=== PATIENT | male | born 1955 | race Caucasian/White ===

== ENCOUNTER 2017-08-20 10:52 | Day surgery (SDC) | payer BC ==
[2017-08-20] VITALS (8 sets, daily range): BP systolic 122–153; BP diastolic 69–99; PULSE 72–88; RESP 17–18; TEMP 97.6–98.7; O2SAT 95–96
[~2017-08-20] VITALS: Ht 188 cm; Wt 114.7 kg
[~2017-08-20 10:52] MED LIST: AMLO5TAB22 PO; ASCO500C PO; ASPI81TA82 PO; ATEN-100 PO; ATOR20TA42 PO; GLUC250C5 PO; HYDR-2768 PO; MULT1TAB46; MULTCAP14 PO; OMEG1CAP53 PO
[2017-08-20 12:44] LABS: AUTOMATED NEUTROPHIL # 5.3 TH/MM3 (1.8-7.7); BASOPHIL % 0.3 % (0.0-2.0); EOSINOPHIL # 0.1 TH/MM3 (0-0.4); EOSINOPHIL % 0.8 % (0.0-4.0); HEMATOCRIT 43.8 % (39.0-51.0); HEMO FLAGS DIFF FINAL; LYMPH % 21.2 % (9.0-44.0); LYMPHOCYTE # 1.6 TH/MM3 (1.0-4.8); MEAN CELL VOLUME 92.1 FL (80.0-100.0); MEAN CORPUSCULAR HEMOGLOBIN 31.1 PG (27.0-34.0); MEAN CORPUSCULAR HGB CONC 33.8 % (32.0-36.0); MONO % 9.4 % (0.0-8.0); NEUT % 68.3 % (16.0-70.0); PLATELET COUNT 194 TH/MM3 (150-450); RED BLOOD COUNT 4.76 MIL/MM3 (4.50-5.90); WHITE BLOOD COUNT 7.7 TH/MM3 (4.0-11.0)
[2017-08-20 12:50] LABS: APTT (PATIENT) 25.9 SEC (24.3-30.1); PROTHROMBIN TIME - PATIENT 10.6 SEC (9.8-11.6)
[2017-08-20 13:08] LABS: BICARBONATE 29.8 MEQ/L (21.0-32.0)
[2017-08-20 13:13] LABS: POTASSIUM 4.2 MEQ/L (3.5-5.1)
[2017-08-20] MEDS ORDERED: SODIUM CHLORID 0.9% 500 ML IV PRN (13:45)
[2017-08-20] MEDS ORDERED: POVIDONE IODINE 5% (ANTISEPSIS KIT) 4 APPLICATIONS EACH NARE PRN (13:45)
[2017-08-20] MEDS ORDERED: METOPROLOL TARTRATE 25 MG TAB PO PRN (13:45)
[2017-08-20] MEDS ORDERED: LACTATED RINGER'S 1000 ML IV PRN (13:45)
[2017-08-20] MEDS ORDERED: LORazepam 1 MG TAB SL SCH (13:45)
[2017-08-20] MEDS ORDERED: INSULIN HUMAN REGULAR 1,000 UNITS/10 ML VIAL SQ PRN (13:45)
[2017-08-20] MEDS ORDERED: CHLORHEXIDINE GLUCONATE 2 % 1 PACK (2 CLOTHS) TOPICAL PRN (13:45)
[2017-08-20] MEDS ORDERED: MULT1TAB46 PO (13:48)
[2017-08-20] MEDS ORDERED: ATOR10TA15 PO (13:48)
[2017-08-20] MEDS ORDERED: ALEV220T14 PO (13:48)
[2017-08-20] MEDS ORDERED: FURO1TAB60 PO (13:48)
[2017-08-20] MEDS ORDERED: MOME0.1C23 TOPICAL (13:48)
[2017-08-20] MEDS ORDERED: PRAD150C PO (13:48)
[2017-08-20] MEDS ORDERED: ATEN25TA PO (13:48)
[2017-08-20] MEDS ORDERED: VIAG50TA PO (13:48)
[2017-08-20] MEDS ORDERED: AMLO5TAB2 PO (13:48)
[2017-08-20] MEDS ORDERED: ASCO500C PO (13:48)
[2017-08-20] MEDS ORDERED: IBUP200C PO (13:48)
[2017-08-20] MEDS: SODIUM CHLORID 0.9% 500 ML INJ 500 ML IV SCH (14:00)
[2017-08-20] MEDS ORDERED: HEPARIN-NS/PF INJ 1,500 ML ONE (14:49)
[2017-08-20] MEDS ORDERED: LEVOFLOXACIN 500 MG PREMIX INJ 100 ML IV ONE (14:49)
[2017-08-20] MEDS ORDERED: PROTAMINE SULFATE 50 MG/5 ML VIAL ONE (15:10)
[2017-08-20] MEDS ORDERED: ISOPROTERENOL HCL 1 MG/5 ML AMP ONE (15:10)
[2017-08-20] MEDS ORDERED: HEPARIN SODIUM - IV 10,000 UNITS/10 ML VIAL ONE (15:10)
[2017-08-20] MEDS ORDERED: HEPARIN-NS/PF INJ 500 ML ONE (15:10)
[2017-08-20] MEDS ORDERED: SODIUM CHLOR 0.9% 250 ML INJ 250 ML ONE (15:10)
[2017-08-20] MEDS ORDERED: HEPARIN-D5W 25,000 U/250 ML 250 ML ONE (15:11)
--- NOTE | 2017-08-20 16:24 | CATHPROC ---
[place] HIS Report Study Information Study Number Admission Scheduled Start Study Start [id number] Aug 20 2017 10:52AM 08/20/2017 Aug 20 2017 2:25PM [place] Service Electrophysiology Study Admit Source Facility Department Other [facility] - Thermo Cementing Folder Operator Physician and Clinical Staff Initial Earlene Miles Almond Cutting Machine Tender Gabriel Lopez,RT(R) Almond Cutting Machine Tender Rosa Mcfarland,BILLIE Other Anesthesia, CASINO FLOORPERSON Recorder Nadine Mckenzie,BREANA Scrub Sylvia Jarquin,ORACLE E BUSINESS DEVELOPER TECH2 Procedures Performed Procedure Ablation Procedure Equipment Time Raw Sampler Description Size Mfg Part Number Used/Scraped NEEDLE, TRANSSEPTAL NRG 98 14:28 [facility] [id number] Used C1 BIOSENSE WEN CATHETER, CELSIUS DS, 8MM, F [id number] 15:44 FR 7 Used INC. TYPE QUAD *[id number] [employer]/ EP 14:28 KIT, TRANSDUCER / AFIB [id number] Used PACER [id number] CATHETER, TACTICATH ABLAT BUNDLE 14:28 [facility] Used 65 BUNDLE *[id number]- BUNDLE [id number] CATHETER, FR7 OPTIMA SPIRAL 14:28 [facility] FR7 *[id number]- Used BUNDLE BUNDLE [id number] 14:28 [facility] CATHETER, JSN, QUAD BUNDLE FR 5 *[id number]- Used BUNDLE [id number] 14:28 [facility] CATHETER, JSN, QUAD BUNDLE FR 5 *[id number]- Used BUNDLE [id number] SET, COOL POINT TUBING 14:28 [facility] *[id number]- Used BUNDLE BUNDLE SHEATH, FR8.5 STEERABLE SM 14:28 [facility] 71CM [id number] Used 71CM BUNDLE COVER, TRANSDUCER CABLE 14:28 [employer] 612-113 Used ACUNAV 14:28 CORDIS/PACER SHEATH, FR10 SRIDHAR 11CM FR 10 [id number] Used 14:28 CORDIS/PACER SHEATH, FR9 SRIDHAR 11CM FR 9 [id number] Used [id number] 14:28 MED[employer] IND[employer] PACK, CCL CUSTOM * Used *[id number] 14:28 MEDLINE PACER CASIANO, LIMB * 0380 *[id number] Used [id number] 14:28 [facility] MEDICAL SHEATH, FR4.5 PRELUDE 11CM FR 4.5 Used [id number] 14:28 NAMIC TUBING, HIGH PRESSURE 48" 48" Used *[id number] 14:28 NAMIC TUBING, HIGH PRESSURE 48" 48" Used *[id number] 14:28 [facility]IA[facility] MEDICAL BLANKET,WARM AIR CCL * Used *[id number] 14:28 [facility] MEDICAL ELECTRODE KIT, OSWALDO X SURFACE * Used *[id number] 14:28 [facility] MEDICAL SHEATH, EPS, FR6 FAST CATH FR 6 Used *[id number] 14:28 [facility] MEDICAL SHEATH, EPS, FR7 FAST CATH FR 7 [id number] Used [id number] 14:28 [facility] MEDICAL SHEATH, EPS, FR8 FAST CATH FR 8 Used *[id number] CATHETER, ACUNAV FR10 ICE [id number] 15:32 ELIN FR 10 Used (ELIN) *[id number] [facility], ELECTROSURGICAL 14:28 * [id number] *[id number] Used SURGICAL GROUNDING (BLUE) History: Allergies Allergy Reaction flecainide Bradycardia History: Risk Factors Hypertension Dyslipidemia Previous DE Yes Yes Yes Labs Hgb (g/dl) Hct (%) RBC (MIL/MM3) WBC (l/cumm) Platelets (thousands) 11.60-17.00 35.00-51.00 4.00-5.90 4.00-11.00 150.00-450.00 14.0 43 4.7 7.7 194 Glucose (mg/dl) BUN (mg/dl) Creatinine (mg/dl) BUN:Creatinine (1:x) 74.00-106.00 7.00-18.00 0.50-1.30 10.00-20.00 98 17 0.8 21.3 Na (meq/l) K (meq/l) 136.00-145.00 3.50-5.10 137 4.2 INR (PTT:PT) 0.90-1.10 1 Medication Medication Total Dose (Bolus/Oral) Medication Total Dosage/Unit 1% XYLOCAINE 40 mL HEPARIN 8000 units PROTAMINE 40 mg Medications (Bolus/Oral) Medication Time Given Dosage/Unit Administered By Reason 1% XYLOCAINE 08/20/2017 3:27:00 PM 20 mL Earlene Nix 20 mL 1% XYLOCAINE given in lab by Earlene Nix in Left Groin via Subcutaneous. 1% XYLOCAINE 08/20/2017 3:29:59 PM 20 mL Earlene Nix 20 mL 1% XYLOCAINE given in lab by Earlene Nix in Right Groin via Subcutaneous. HEPARIN 08/20/2017 3:49:48 PM 8000 units Anesthesia, CASINO FLOORPERSON 8000 units HEPARIN given in lab by Anesthesia, CASINO FLOORPERSON via Peripheral IV. PROTAMINE 08/20/2017 4:08:56 PM 40 mg Anesthesia, CASINO FLOORPERSON As per physicians izaiah bal order 40 mg PROTAMINE given in lab by Anesthesia, CASINO FLOORPERSON via Peripheral IV. Ordered by Earlene Nix. Reason: As per physicians verbal order. Medication (Drip) Medication Time Given Dosage/Unit Concentration/Unit Diluent (ml) Solution ISUPREL 08/20/2017 3:59:38 PM 5 mcg/min 1 mg 250 NaCl .9 5 mcg/min ISUPREL given in lab by Anesthesia, CASINO FLOORPERSON via Peripheral IV. Pump/Drip Flow = 75 ml/hr using NaCl .9 with a concentration of 1 mg in 250 ml. LEVAQUIN 08/20/2017 3:16:31 PM 100 mL/hr 500 100 NaCl .9 100 mL/hr LEVAQUIN given in lab by Anesthesia, CASINO FLOORPERSON via Peripheral IV. Pump/Drip Flow = 0 ml/hr using NaCl .9 with a concentration of 500 in 100 ml. Ordered by Earlene Nix. Reason: As per physicians verbal order. Initial Case Assessment Cardiovascular HR Rhythm NIBP Chest Pain 99 af 141/82 0 Edema Present Skin color Skin None Normal Warm Dry Circulatory - Right Pulses Dorsalis Pedis 1 Scale (0,1,2,3,4,d) Circulatory - Left Pulses Dorsalis Pedis 1 Scale (0,1,2,3,4,d) Circulatory - Lower Extremities Color Lower Right Color Lower Left Normal Normal Neurological State Oriented to time-place- Alert Moves all extremities person Respiration - General Respiration Rate SpO2 (%) (B/min) 18 100 Final Case Assessment Cardiovascular HR Rhythm NIBP Chest Pain 99 sr 102/67 0 Edema Present Skin color Skin None Normal Warm Dry Circulatory - Right Pulses Dorsalis Pedis 1 Scale (0,1,2,3,4,d) Circulatory - Left Pulses Dorsalis Pedis 1 Scale (0,1,2,3,4,d) Circulatory - Lower Extremities Color Lower Right Color Lower Left Normal Normal Neurological State Oriented to time-place- Lethargic Moves all extremities person Respiration - General Respiration Rate SpO2 (%) O2 (lpm) (B/min) 16 100 4 Chronological Log Time Study Chronological Log 14:44:07 Patient arrived via Bed. 14:44:08 Patient Name, D.O.B, / Armband Verified By R.N. 14:44:09 Consent signed by the physician and the patient and verified by the Thermo Cementing Folder Operator staff. 14:44:10 Pre-op and post- op instructions given; patient acknowledges understanding of instructions. 14:44:12 Verbal Stimulation=2 Physical Stimulation=2 Airway=2 Respiration=2 TOTAL=8. (0=absent, 1=li mited, 2=present) 14:44:21 Anesthesia at bedside. Assumes care of patient. 14:44:24 Patient has been NPO for More than 6Hrs. 14:44:25 Skin Breakdown- bilateraled groins excoriated. MD made aware 14:44:34 Patient Warmer Placed on the Table. 14:44:35 Disposable Defibrillator Pads Placed On Patient. 14:44:36 Shanna Prominences Protected 14:44:42 A # 22 IV was noted in the Hand (left). Grade = 0 0.9ns kvo 14:44:44 A # 20 IV was noted in the Antecubital (right). Grade = 0 0.9ns kvo 14:44:47 History and physical on the chart or being dictated. Assessment: Initial Case, HR=99 BPM, Rhythm=af, NNBH=146/82 mmhg, Chest Pain=0, Edema=None, Col or=Normal, Skin = Warm, Dry Right Pulses: Ash Ped=1 Left Pulses: Ash Ped=1 14:52:20 Lower Right Extremities: Color=Normal Lower Left Extremities: Color=Normal Neurological: State=Alert, Ox3, [place] Respiration: Resp=18 B/min, XnI7=260 % 15:00:00 Table restraints applied according to hospital policy 15:00:00 MD arrived. 15:06:00 Anesthesia present for intubation. 14Fr wilkinson inserted sans difficulty. Clear yellow urine obtained. 15:09:50 Bilateral groins prepped with 2% chlorhexidine, and draped after a 3 minute waiting time. 15:16:04 Reference ECG taken 100 mL/hr LEVAQUIN given in lab by Anesthesia, CASINO FLOORPERSON via Peripheral IV. Pump/Drip Flow = 0 ml/hr using NaCl .9 with 15:16:31 a concentration of 500 in 100 ml. Ordered by Earlene Nix. Reason: As per physicians verbal or estrada. Time Out. Correct patient, procedure, procedure equipment, site and side verified with physicia n present. Time 15:22:02 concurred by MD, individual staff and CASINO FLOORPERSON. Time Out #2 - Consents verified, patient in correct position, all results are labled and displa yed, safety precautions 15:22:35 taken, antibiotics administered. Time out concurred by MD, individual staff and CASINO FLOORPERSON in procedu re 15:22:48 Case Start 15:22:54 Ramírez in progress. 15:26:00 Ramírez complete 15:27:00 20 mL 1% XYLOCAINE given in lab by Earlene Nix in Left Groin via Subcutaneous. 15:28:02 Vascular access was obtained in the Fem Vein (left). 15:28:05 Vascular access was obtained in the Fem Vein (left). 15:28:08 Vascular access was obtained in the Fem Vein (left). 15:28:14 Vascular access was obtained in the Fem Art (left). A SHEATH, FR4.5 PRELUDE 11CM FR 4.5 was advanced into the Fem Art (left) using the Modified Lindsay letty technique. 15:28:25 0.9ns pressure bag connected. 15:28:54 A SHEATH, EPS, FR6 FAST CATH FR 6 was advanced into the Fem Vein (left) using the Modified Seldinger technique. 15:29:01 A SHEATH, EPS, FR7 FAST CATH FR 7 was advanced into the Fem Vein (left) using the Modified Seldinger technique. 15:29:06 A SHEATH, FR10 SRIDHAR 11CM FR 10 was advanced into the Fem Vein (left) using the Modified S eldinger technique. 15:29:59 20 mL 1% XYLOCAINE given in lab by Earlene Nix in Right Groin via Subcutaneous. 15:30:06 Vascular access was obtained in the Fem Vein (right). 15:30:11 A SHEATH, EPS, FR8 FAST CATH FR 8 was advanced into the Fem Vein (right) using the Modified Seldinger technique. A CATHETER, JSN, QUAD BUNDLE FR 5 was advanced vis Fem Vein (left) and placed in the CS. Placem ent was visually 15:38:56 confirmed under fluoroscopy. A CATHETER, JSN, QUAD BUNDLE FR 5 was advanced vis Fem Vein (left) and placed in the RA. Placem ent was visually 15:45:31 confirmed under fluoroscopy. A CATHETER, CELSIUS DS, 8MM, F TYPE QUAD FR 7 was advanced vis Fem Vein (right) and placed in t RA. 15:45:52 Placement was visually confirmed under fluoroscopy. 15:48:53 ablation catheter out A SHEATH, FR8.5 STEERABLE SM 71CM BUNDLE 71CM was exchanged in the Fem Vein (right). This was n ecessary in 15:49:31 order to accomodate a larger catheter. 15:49:48 8000 units HEPARIN given in lab by Anesthesia, CASINO FLOORPERSON via Peripheral IV. A CATHETER, CELSIUS DS, 8MM, F TYPE QUAD FR 7 was advanced vis Fem Vein (right) and placed in t RA. 15:51:13 Placement was visually confirmed under fluoroscopy. 15:52:00 ablation in progress 15:59:20 All Catheter(s) removed without difficulty 5 mcg/min ISUPREL given in lab by Anesthesia, CASINO FLOORPERSON via Peripheral IV. Pump/Drip Flow = 75 ml/h r using NaCl .9 with 15:59:38 a concentration of 1 mg in 250 ml. 16:05:35 Isuprel off. A SHEATH, FR9 SRIDHAR 11CM FR 9 was exchanged in the Fem Vein (right). This was necessary in or estrada to minimize 16:06:20 site leakage. 40 mg PROTAMINE given in lab by Anesthesia, CASINO FLOORPERSON via Peripheral IV. Ordered by Earlene Nix. Reason: As per 16:08:56 physicians verbal order. 16:14:49 Sterile dressing applied to sites 16:15:56 Activated Clotting Time Drawn Assessment: Final Case, HR=99 BPM, Rhythm=sr, VPBY=518/67 mmhg, Chest Pain=0, Edema=None, [place] r=Normal, Skin = Warm, Dry Right Pulses: Ash Ped=1 Left Pulses: Ash Ped=1 16:18:34 Lower Right Extremities: Color=Normal Lower Left Extremities: Color=Normal Neurological: State=Lethargic, Ox3, [place] Respiration: Resp=16 B/min, GoZ7=004 %, O2=4 lpm 16:20:02 Case End 16:20:38 ACT (Normal Range 90-180) = 146 16:21:49 PACU called. Spoke to Goldy 16:22:53 Bedside Report will be given. 16:23:13 No case complications noted. 16:23:14 Cine recording checked. 16:23:20 Ablation procedure performed: AFIB. 16:23:25 EP Procedure was performed. 16:23:33 Defibrillator and ground pads removed. Skin intact. 16:29:35 Patient moved to stretcher 17:05:47 Sheath(s) left in place, secured, 0.9ns kvo connected and will be removed in Holding Area End Study - Contrast Media Used In Study Contrast Total Opened (mL) Total Used (mL) Total Wasted (mL) Unspecified 0 0 0 End Study - Maximum Contrast Load Max Contrast Load (mL) 715.1 End Study - Radiation Exposure Fluoro Time (minutes) 11.6 End Study - Patient Disposition Complications Transferred To Interventional Outcome No Telemetry Bed successful
[2017-08-20] MEDS ORDERED: BACITRACIN OINT 0.9 GM PKT TOP ONE (16:30)
[2017-08-20] MEDS ORDERED: ATROPINE SULFATE 1 MG/ML VIAL IV PUSH PRN (16:30)
[2017-08-20] MEDS ORDERED: ONDANSETRON HCL 4 MG/2 ML VIAL IV PUSH PRN (16:30)
[2017-08-20] MEDS ORDERED: SODIUM CHLOR 0.9% 250 ML INJ 250 ML IV PRN (16:30)
[2017-08-20] MEDS ORDERED: LIDOCAINE HCL 1% 50 ML VIAL INFIL PRN (16:30)
[2017-08-20] MEDS ORDERED: oxyCODONE/ACETAMINOPHEN 5 MG/325 MG TAB PO PRN ×2 (16:30)
[2017-08-20] MEDS ORDERED: LORazepam 2 MG/ML VIAL IV PUSH PRN (16:30)
[2017-08-20] MEDS ORDERED: DO NOT ADM ANY ANTICOAGULANT DRUGS PRN (16:34)
[2017-08-20] MEDS ORDERED: [UNRECOGNIZED DRUG - OTHER] PO SCH (21:00)
[2017-08-20] MEDS ORDERED: ATORVASTATIN 10 MG TAB PO SCH (21:00)
[2017-08-20] MEDS ORDERED: NAPROXEN SODIUM 220 MG PO SCH (21:00)
[2017-08-20] MEDS: DABIGATRAN ETEXILATE 150 MG CAP PO SCH (21:03)
[2017-08-21] VITALS (9 sets, daily range): BP systolic 124–129; BP diastolic 70–78; PULSE 67–106; RESP 16–18; TEMP 97.6–97.9; O2SAT 94–99
[2017-08-21] MEDS: SODIUM CHLORID 0.9% 500 ML INJ 500 ML IV SCH (06:40)
[2017-08-21 07:10] LABS: INTERNATIONAL NORMALIZED RATIO 1.1 RATIO; PROTHROMBIN TIME - PATIENT 11.5 SEC (9.8-11.6)
--- NOTE | 2017-08-21 07:55 | PD.CARD.PN ---
Subjective Subjective Remarks Feels okay. Objective Medications Current Medications Medications (Trade) Dose Ordered Sig/Nicolas Route Start Time Stop Time Status Last Admin Lactated Ringer's 1,000 ml @ 30 mls/hr Q24H PRN IV 08/20/17 13:45 08/23/17 13:44 Sodium Chloride 500 ml @ 30 mls/hr [id number] PRN IV 08/20/17 13:45 08/23/17 13:44 (Lopressor) 25 mg BATTERY HAND PRN PO 08/20/17 13:45 08/23/17 13:44 (Betadine 5% Antisepsis Kit) 1 applic BATTERY HAND PRN EACH NARE 08/20/17 13:45 08/23/17 13:44 (Chlorhexidine 2% Cloth) 3 pack BATTERY HAND PRN TOPICAL 08/20/17 13:45 08/23/17 13:44 (NovoLIN R INJ) See Protocol Table ... BATTERY HAND PRN SQ 08/20/17 13:45 08/23/17 13:44 Sodium Chloride 500 ml @ 30 mls/hr [id number] IV 08/20/17 14:00 (Ativan) 1 mg BATTERY HAND SL 08/20/17 13:45 08/23/17 13:44 (Percocet 5-325 Mg) 1 tab Q4H PRN PO 08/20/17 16:30 08/20/17 20:18 (Percocet 5-325 Mg) 2 tab Q4H PRN PO 08/20/17 16:30 (Ativan Inj) 0.5 mg UNSCH PRN IV PUSH 08/20/17 16:30 08/21/17 16:29 (Atropine Inj) 0.5 mg UNSCH PRN IV PUSH 08/20/17 16:30 Sodium Chloride 250 ml @ 500 mls/hr ONCE PRN IV 08/20/17 16:30 08/21/17 16:29 (Zofran Inj) 4 mg Q4H PRN IV PUSH 08/20/17 16:30 (Xylocaine 1% Inj (50 ml)) 10 ml UNSCH PRN INFIL 08/20/17 16:30 08/21/17 16:29 (Norvasc) 5 mg DAILY PO 08/21/17 09:00 (Tenormin) 25 mg DAILY PO 08/21/17 09:00 (Lipitor) 10 mg HS PO 08/20/17 21:00 08/20/17 20:18 (Pradaxa) 150 mg BID PO 08/20/17 21:00 08/20/17 21:03 (Lasix) 40 mg DAILY PO 08/21/17 09:00 (Vitamin C) 500 mg DAILY PO 08/21/17 09:00 (Theragran) 1 tab DAILY PO 08/21/17 09:00 Patient Own Medication PT OWN MED: NAPRO... BID PO 08/20/17 21:00 Future Hold Miscellaneous Information ALL NURSING DEPARTME... UNSCH PRN .XX 08/20/17 16:34 08/21/17 16:33 Vital Signs / I&O Vital Signs Date Time Temp Pulse Resp B/P (MAP) Pulse Ox O2 Delivery O2 Flow Rate FiO2 08/21/17 07:00 97.6 70 18 124/70 (88) 99 08/21/17 07:00 67 08/21/17 06:10 72 08/21/17 05:18 67 08/21/17 04:08 74 08/21/17 03:20 97.9 79 16 129/78 (95) 94 08/21/17 03:20 82 08/21/17 02:27 75 08/21/17 01:18 83 08/21/17 00:13 106 08/20/17 23:44 98.0 76 17 122/70 (87) 95 08/20/17 23:00 74 08/20/17 22:00 78 08/20/17 21:00 88 08/20/17 20:00 82 08/20/17 19:40 87 08/20/17 19:30 97.6 80 18 129/69 (89) 96 08/20/17 19:00 97.8 80 20 130/66 (87) 93 Nasal Cannula 2 08/20/17 18:45 82 20 112/67 (82) 97 Nasal Cannula 2 08/20/17 18:30 80 20 110/66 (81) 95 Nasal Cannula 2 08/20/17 18:15 78 20 122/70 (87) 97 Nasal Cannula 2 08/20/17 18:00 76 20 107/68 (81) 96 Nasal Cannula 2 08/20/17 17:45 78 20 125/70 (88) 96 Nasal Cannula 2 08/20/17 17:30 78 20 115/69 (84) 96 Nasal Cannula 2 08/20/17 17:15 77 20 109/69 (82) 95 Nasal Cannula 2 08/20/17 17:00 84 20 116/71 (86) 96 Nasal Cannula 2 08/20/17 16:45 81 20 128/72 (90) 95 Nasal Cannula 2 08/20/17 16:37 98.0 82 20 123/73 (90) 96 Nasal Cannula 2 08/20/17 13:20 98.7 72 18 153/99 (117) 96 I/O 08/20/17 08/20/17 08/20/17 08/21/17 08/21/17 08/21/17 07:00 15:00 23:00 07:00 15:00 23:00 Intake Total 720 ml Output Total 735 ml Balance -15 ml Intake Oral 720 ml Output Urine Total 735 ml Physical Exam GENERAL: Well-nourished, well-developed patient. SKIN: Warm and dry. Groin site soft without bleeding or bruising. HEAD: Normocephalic. EYES: No scleral icterus. No injection or drainage. NECK: Supple, trachea midline. No JVD or lymphadenopathy. CARDIOVASCULAR: Regular rate and rhythm without murmurs, gallops, or rubs. RESPIRATORY: Breath sounds equal bilaterally. No accessory muscle use. GASTROINTESTINAL: Abdomen soft, non-tender, nondistended. EXTREMITIES: No cyanosis, or edema. NEUROLOGICAL: Awake, alert, and oriented x 3. Non-focal. Laboratory Laboratory Tests Test 08/20/17 12:05 08/21/17 06:23 White Blood Count 7.7 TH/MM3 Red Blood Count 4.76 MIL/MM3 Hemoglobin 14.8 GM/DL Hematocrit 43.8 % Mean Corpuscular Volume 92.1 FL Mean Corpuscular Hemoglobin 31.1 PG Mean Corpuscular Hemoglobin Concent 33.8 % Red Cell Distribution Width 13.0 % Platelet Count 194 TH/MM3 Mean Platelet Volume 8.5 FL Neutrophils (%) (Auto) 68.3 % Lymphocytes (%) (Auto) 21.2 % Monocytes (%) (Auto) 9.4 % Eosinophils (%) (Auto) 0.8 % Basophils (%) (Auto) 0.3 % Neutrophils # (Auto) 5.3 TH/MM3 Lymphocytes # (Auto) 1.6 TH/MM3 Monocytes # (Auto) 0.7 TH/MM3 Eosinophils # (Auto) 0.1 TH/MM3 Basophils # (Auto) 0.0 TH/MM3 CBC Comment DIFF FINAL Differential Comment Prothrombin Time 10.6 SEC 11.5 SEC Prothromb Time International Ratio 1.0 RATIO 1.1 RATIO Activated Partial Thromboplast Time 25.9 SEC 31.0 SEC Blood Urea Nitrogen 17 MG/DL Creatinine 0.87 MG/DL Random Glucose 98 MG/DL Calcium Level 8.6 MG/DL Sodium Level 137 MEQ/L Potassium Level 4.2 MEQ/L Chloride Level 102 MEQ/L Carbon Dioxide Level 29.8 MEQ/L Anion Gap 5 MEQ/L Estimat Glomerular Filtration Rate 89 ML/MIN Assessment and Plan Problem List: (1) Paroxysmal a-fib ICD Codes: I48.0 - Paroxysmal atrial fibrillation Status: Acute Plan: Feels better. Resume Pradaxa. (2) S/P ablation of atrial fibrillation ICD Codes: Z98.890 - Other specified postprocedural states; Z86.79 - Personal history of other diseases of the circulatory system Plan: Stable status post ablation. Resume Pradaxa, discharge home, follow-up with Dr. Nix in 3 weeks per my discussion with him. Gia Arrington Aug 21, 2017 07:55
[2017-08-21] MEDS: DABIGATRAN ETEXILATE 150 MG CAP PO SCH (08:24)
[2017-08-21] MEDS ORDERED: FUROSEMIDE 40 MG TAB PO SCH (09:00)
[2017-08-21] MEDS ORDERED: ATENOLOL 25 MG TAB PO SCH (09:00)
[2017-08-21] MEDS ORDERED: amLODIPine BESYLATE 5 MG TAB PO SCH (09:00)
[2017-08-21] MEDS ORDERED: MULTIVITAMIN TAB PO SCH (09:00)
[2017-08-21] MEDS ORDERED: ASCORBIC ACID 500 MG TAB PO SCH (09:00)
--- NOTE | 2017-08-21 15:05 | EKG ---
Date Performed: 08/21/2017 Time Performed: 06:20:20 PTAGE: 61 years EKG: Sinus rhythm Possible faulty V2 - omitted from analysis Normal ECG PREVIOUS TRACING : 08/20/2017 17.25 DOCTOR: Addison Zambrano Interpretating Date/Time 08/21/2017 15:04:06
--- NOTE | 2017-08-21 15:48 | EKG ---
Date Performed: 08/20/2017 Time Performed: 17:25:35 PTAGE: 61 years EKG: Sinus rhythm WITH OCCASIONAL SUPRAVENTRICULAR PREMATURE COMPLEXES BORDERLINE ECG PREVIOUS TRACING : 08/20/2017 12.39 DOCTOR: Addison Zambrano Interpretating Date/Time 08/21/2017 15:47:48
--- NOTE | 2017-08-21 16:00 | EKG ---
Date Performed: 08/20/2017 Time Performed: 12:39:08 PTAGE: 61 years EKG: Possible atrial flutter. Possible faulty V2 - omitted from analysis Abnormal ECG PREVIOUS TRACING : 04/13/2016 11.35 DOCTOR: Addison Zambrano Interpretating Date/Time 08/21/2017 15:58:28
== END 2017-08-21 09:40 | disposition home or self-care (01) ==
LOC: HDIC 10:52 → HDOC 10:52 → HCPC 19:19 → HDOC 08-21 09:40
PROVIDERS: ATTEND Internal Medicine Interventional Cardiology
DX: I48.91 Unspecified atrial fibrillation (principal); I10 Essential (primary) hypertension; Z79.01 Long term (current) use of anticoagulants
CPT/HCPCS: 00537; 80048; 85002; 85025; 85610; 85730; 93005; 93312; 93320; 93325; 93613; 93623; 93653; 93662; C1730; C1732; C1759; C1766; C2630; J1644; J1956; J2720; J7050